=== PATIENT | female | born 1955 | race Hispanic/Latino ===

== ENCOUNTER 2019-04-22 20:41 | Emergency (ER) | payer OTHER ==
--- NOTE | 2019-04-22 21:29 | EDPHYS ---
Physician Documentation [facility] Name: Rosetta Reilly Age: 63 yrs Sex: Female : 1955 Arrival Date: 04/22/2019 Time: 20:45 Bed 13 Private MD: ED Physician Mk Dia HPI: 04/22 21:26 This 63 yrs old Female presents to ER via Ambulatory with complaints of Ear pm1 Pain - cant hear. 21:26 The patient presents with pain. The complaints affect the right ear and left ear. pm1 21:26 Onset: The symptoms/episode began/occurred 1 week(s) ago. Modifying factors: The pm1 symptoms are alleviated by nothing, the symptoms are aggravated by nothing. Associated signs and symptoms: Pertinent positives: difficulty hearing. Severity of symptoms: in the emergency department the symptoms are worse. Was diagnosed at another ER in the [place] area and was prescribed antibiotic ear drops. Reports no ruptured TM at that time. Historical: - Allergies: 21:02 No Known Allergies; tl2 - Home Meds: 21:02 lisinopril 2.5 mg Oral tab 1 tab once daily [Active]; metoprolol succinate 100 mg oral tl2 Tb24 1 tab once daily [Active]; loratadine oral oral [Active]; Tramadol Oral [Active]; clopidogrel oral oral [Active]; Omeprazole Oral [Active]; - PMHx: 21:02 Arthritis; Cholelithiasis; GERD; Hypertension; Migraines; tl2 - PSHx: 21:02 None; tl2 - Immunization history:: Adult Immunizations up to date. - Social history:: Smoking status: Patient/guardian denies using tobacco. - Ebola Screening: : No symptoms or risks identified at this time. ROS: 21:26 Constitutional: Negative for fever, chills, and weight loss, Eyes: Negative for injury, pm1 pain, redness, and discharge. 21:26 Neck: Negative for injury, pain, and swelling, Cardiovascular: Negative for chest pain, palpitations, and edema, Respiratory: Negative for shortness of breath, cough, wheezing, and pleuritic chest pain, Abdomen/GI: Negative for abdominal pain, nausea, vomiting, diarrhea, and constipation, Back: Negative for injury and pain, MS/Extremity: Negative for injury and deformity, Skin: Negative for injury, rash, and discoloration, Neuro: Negative for headache, weakness, numbness, tingling, and seizure. 21:26 ENT: Positive for ear pain, hearing loss. Exam: 21:26 Constitutional: This is a well developed, well nourished patient who is awake, alert, pm1 and in no acute distress. Head/Face: Normocephalic, atraumatic. 21:26 Neck: Trachea midline, no thyromegaly or masses palpated, and no cervical lymphadenopathy. Supple, full range of motion without nuchal rigidity, or vertebral point tenderness. No Meningismus. Chest/axilla: Normal chest wall appearance and motion. Nontender with no deformity. No lesions are appreciated. Cardiovascular: Regular rate and rhythm with a normal S1 and S2. No gallops, murmurs, or rubs. Normal PMI, no JVD. No pulse deficits. Respiratory: Lungs have equal breath sounds bilaterally, clear to auscultation and percussion. No rales, rhonchi or wheezes noted. No increased work of breathing, no retractions or nasal flaring. Back: No spinal tenderness. No costovertebral tenderness. Full range of motion. Skin: Warm, dry with normal turgor. Normal color with no rashes, no lesions, and no evidence of cellulitis. MS/ Extremity: Pulses equal, no cyanosis. Neurovascular intact. Full, normal range of motion. 21:26 ENT: External ear(s): are unremarkable, Ear canal(s): foreign body, a piece of a Q-tip, in the left external ear canal, behind ruptured TM, TM's: rupture, bilaterally, Nose: is normal, Mouth: is normal, no gum abnomalities, no lip abnormalities, no mucosal abnormalities, no tongue abnormalities. 21:26 Neuro: Orientation: is normal, Motor: is normal, moves all fours. Vital Signs: 21:03 BP 126 / 71; Pulse 67; Resp 18; Temp 97.9(O); Pulse Ox 99% on R/A; Weight 72.57 kg; tl2 Height 5 ft. 1 in. (154.94 cm); Pain 4/10; 21:03 Body Mass Index 30.23 (72.57 kg, 154.94 cm) tl2 MDM: 21:07 Patient medically screened. pm1 21:26 Data reviewed: vital signs. Data interpreted: Pulse oximetry: on room air is 99 %. pm1 Interpretation: normal. Counseling: I had a detailed discussion with the patient and/or guardian regarding: the historical points, exam findings, and any diagnostic results supporting the discharge/admit diagnosis, the need for outpatient follow up, an ENT specialist, to return to the emergency department if symptoms worsen or persist or if there are any questions or concerns that arise at home. Administered Medications: No medications were administered Disposition: 22:53 Co-signature as Attending Physician, Mk Dia MD. kiesha Disposition: 04/22/19 21:28 Discharged to Home. Impression: Unspecified perforation of tympanic membrane, right ear, Unspecified perforation of tympanic membrane, left ear, Foreign body in left ear. - Condition is Stable. - Discharge Instructions: Eardrum Rupture, Adult, Ear Foreign Body. - Prescriptions for Augmentin 875- 125 mg Oral Tablet - take 1 tablet by ORAL route every 12 hours for 10 days; 20 tablet. Tramadol 50 mg Oral Tablet - take 1 tablet by ORAL route every 8 hours as needed; 12 tablet. - Medication Reconciliation Form, Thank You Letter, Antibiotic Education, Prescription Opioid Use form. - Follow up: Emergency Department; When: As needed; Reason: Worsening of condition. Follow up: Private Physician; When: 2 - 3 days; Reason: Recheck today's complaints, Continuance of care, Re-evaluation by your physician. Follow up: Rosamaria Rosales MD; When: 2 - 3 days; Reason: Recheck today's complaints, Continuance of care, Re-evaluation by your physician. - Problem is new. - Symptoms have improved. Signatures: Mk Dia MD MD pkl Marinas, Patrick, NP [employer] pm1 Viktoria Aiken RN RN tl2 London Davis RN RN jb4 Corrections: (The following items were deleted from the chart) 21:29 21:28 04/22/2019 21:28 Discharged to Home. Impression: Unspecified perforation of pm1 tympanic membrane, right ear; Unspecified perforation of tympanic membrane, left ear; Foreign body in left ear. Condition is Stable. Forms are Medication Reconciliation Form, Thank You Letter, Antibiotic Education, Prescription Opioid Use. Follow up: Emergency Department; When: As needed; Reason: Worsening of condition. Follow up: Private Physician; When: 2 - 3 days; Reason: Recheck today's complaints, Continuance of care, Re-evaluation by your physician. Problem is new. Symptoms have improved. pm1 21:46 21:29 04/22/2019 21:28 Discharged to Home. Impression: Unspecified perforation of jb4 tympanic membrane, right ear; Unspecified perforation of tympanic membrane, left ear; Foreign body in left ear. Condition is Stable. Discharge Instructions: Eardrum Rupture, Adult, Ear Foreign Body. Prescriptions for Augmentin 875-125 mg Oral Tablet - take 1 tablet by ORAL route every 12 hours for 10 days; 20 tablet, Tramadol 50 mg Oral Tablet - take 1 tablet by ORAL route every 8 hours as needed; 12 tablet. and Forms are Medication Reconciliation Form, Thank You Letter, Antibiotic Education, Prescription Opioid Use. Follow up: Emergency Department; When: As needed; Reason: Worsening of condition. Follow up: Private Physician; When: 2 - 3 days; Reason: Recheck today's complaints, Continuance of care, Re-evaluation by your physician. Follow up: Rosamaria Rosales; When: 2 - 3 days; Reason: Recheck today's complaints, Continuance of care, Re-evaluation by your physician. Problem is new. Symptoms have improved. pm1
--- NOTE | 2019-04-22 21:29 | ER ---
Nurse's Notes [facility] Name: Rosetta Reilly Age: 63 yrs Sex: Female : 1955 Arrival Date: 04/22/2019 Time: 20:45 Bed 13 Private MD: Diagnosis: Unspecified perforation of tympanic membrane, right ear;Unspecified perforation of tympanic membrane, left ear;Foreign body in left ear Presentation: 04/22 20:59 Presenting complaint: Patient states: L ear pain, drainage and loss of hearing x 1 tl2 week. Also c/o right ear pain today. Transition of care: patient was not received from another setting of care. Onset of symptoms was April 15, 2019. Risk Assessment: Do you want to hurt yourself or someone else? Patient reports no desire to harm self or others. Initial Sepsis Screen: Does the patient meet any 2 criteria? No. Patient's initial sepsis screen is negative. Does the patient have a suspected source of infection? No. Patient's initial sepsis screen is negative. Care prior to arrival: None. 20:59 Method Of Arrival: Ambulatory tl2 20:59 Acuity: LOUIE 4 tl2 Triage Assessment: 21:04 General: Appears. tl2 Historical: - Allergies: 21:02 No Known Allergies; tl2 - Home Meds: 21:02 lisinopril 2.5 mg Oral tab 1 tab once daily [Active]; metoprolol succinate 100 mg oral tl2 Tb24 1 tab once daily [Active]; loratadine oral oral [Active]; Tramadol Oral [Active]; clopidogrel oral oral [Active]; Omeprazole Oral [Active]; - PMHx: 21:02 Arthritis; Cholelithiasis; GERD; Hypertension; Migraines; tl2 - PSHx: 21:02 None; tl2 - Immunization history:: Adult Immunizations up to date. - Social history:: Smoking status: Patient/guardian denies using tobacco. - Ebola Screening: : No symptoms or risks identified at this time. Screenin:03 Abuse screen: Denies threats or abuse. Nutritional screening: No deficits noted. tl2 Tuberculosis screening: No symptoms or risk factors identified. Fall Risk None identified. Assessment: 21:00 General: Appears in no apparent distress. comfortable, Behavior is calm, cooperative, jb4 appropriate for age. Pain: Complains of pain in left ear Pain does not radiate. Pain currently is 5 out of 10 on a pain scale. Quality of pain is described as burning. Neuro: Level of Consciousness is awake, alert, obeys commands, Oriented to person, place, time, situation. Cardiovascular: Patient's skin is warm and dry. Respiratory: Airway is patent Respiratory effort is even, unlabored, Respiratory pattern is regular, symmetrical. GI: No signs and/or symptoms were reported involving the gastrointestinal system. : No signs and/or symptoms were reported regarding the genitourinary system. EENT: Tympanic membrane not visualized left ear and right ear Ear canal clear on right ear w/ foreign body noted from left ear. Derm: Skin is intact, Skin is pink, warm \T\ dry. Musculoskeletal: Circulation, motion, and sensation intact. Range of motion: intact in all extremities. 21:45 Reassessment: Patient appears in no apparent distress at this time. Patient is alert, jb4 oriented x 3, equal unlabored respirations, skin warm/dry/pink. PT ambulated out of Ed with steady gait, patients and family verbalized understanding of d/c and follow up instructions, denies questions or concerns. Vital Signs: 21:03 BP 126 / 71; Pulse 67; Resp 18; Temp 97.9(O); Pulse Ox 99% on R/A; Weight 72.57 kg; tl2 Height 5 ft. 1 in. (154.94 cm); Pain 4/10; 21:03 Body Mass Index 30.23 (72.57 kg, 154.94 cm) tl2 ED Course: 20:45 Patient arrived in ED. am2 20:56 Michael Mcclain NP is PHCP. pm1 20:56 Mk Dia MD is Attending Physician. pm1 21:00 Triage completed. tl2 21:03 Patient has correct armband on for positive identification. tl2 21:29 Rosamaria Rosales MD is Referral Physician. pm1 21:41 London Davis, ROSSY is Primary Nurse. jb4 21:45 No provider procedures requiring assistance completed. Patient did not have IV access jb4 during this emergency room visit. Administered Medications: No medications were administered Outcome: 21:28 Discharge ordered by MD. pm1 21:45 Discharged to home ambulatory, with family. jb4 21:45 Condition: stable 21:45 Discharge instructions given to patient, family, Instructed on discharge instructions, follow up and referral plans. medication usage, Demonstrated understanding of instructions, follow-up care, medications, Prescriptions given X 2. 21:46 Patient left the ED. jb4 Signatures: Michael Mcclain NP [employer] pm1 Viktoria Aiken RN RN tl2 London Davis RN RN jb4 Suad Quarles
== END 2019-04-22 21:46 | disposition home or self-care (01) ==
LOC: ER 20:41
DX: T16.2XXA Foreign body in left ear, initial encounter (principal); H72.93 Unspecified perforation of tympanic membrane, bilateral; I10 Essential (primary) hypertension; K21.9 Gastro-esophageal reflux disease without esophagitis
CPT/HCPCS: 99282